=== PATIENT | female | born 1940 | race Caucasian/White ===

== ENCOUNTER 2021-12-12 09:47 | Emergency (ER) | payer MEDICARE ==
[2021-12-12 10:13] VITALS: RESP 18
[2021-12-12] MEDS ORDERED: ACETAMINOPHEN TAB 500 MG TAB PO STA (10:25)
[2021-12-12] MEDS ORDERED: IBUPROFEN 600 MG TAB PO STA (10:25)
[2021-12-12 11:54] VITALS: TEMP 97.1
--- NOTE | 2021-12-12 12:11 | XR ---
EXAMINATION TYPE: XR chest 2V DATE OF EXAM: 12/12/2021 COMPARISON: NONE HISTORY: Cough, Covid positive TECHNIQUE: Frontal and lateral views of the chest are obtained. FINDINGS: There is no focal air space opacity, pleural effusion, or pneumothorax seen. Linear band of increased attenuation present at the level of the lingula may represent atelectasis or scar. Aorta is dense. Right hemidiaphragm is elevated. The cardiac silhouette size is within normal limits. Th e osseous structures are intact. IMPRESSION: No acute cardiopulmonary process.
[2021-12-12] MEDS ORDERED: BEBTELOVIMAB (EUA) 175 MG/2 ML VIAL IV ONE (12:30)
--- NOTE | 2021-12-12 13:13 | ED ---
URI HPI - General Chief Complaint: Upper Respiratory Infection Stated Complaint: Covid+ Time Seen by Provider: 12/12/21 10:16 Source: patient Mode of arrival: wheelchair Limitations: no limitations - History of Present Illness Initial Comments: Patient is a 81-year-old female presenting with chief complaint of "I tested positive for Covid and want antibodies". Patient has had a cough and congestion since Friday, she took a home test today that was positive. She denies any chest pain, shortness of breath, fever, chills, nausea, vomiting, abdominal p ain, headache, vision or hearing changes, sore throat, dysphasia, ear pain, sinus pain. Patient is vaccinated against COVID-19. - Related Data Allergies Allergy/AdvReac Type Severity Reaction Status Date / Time No Known Allergies Allergy Verified 12/12/21 10:13 Review of Systems ROS Statement: Those systems with pertinent positive or pertinent negative responses have been documented in the HPI. ROS Other: All systems not noted in ROS Statement are negative. Past Medical History Past Medical History: Hypertension History of Any Multi-Drug Resistant Organisms: None Reported Past Surgical History: Hysterectomy Additional Past Surgical History / Comment(s): Brain surgery Past Psychological History: No Psychological Hx Reported Smoking Status: Never smoker Past Alcohol Use History: None Reported Past Drug Use History: None Reported General Exam Limitations: no limitations General appearance: alert, in no apparent distress Head exam: Present: atraumatic, normocephalic, normal inspection Eye exam: Present: normal appearance, EOMI. Absent: scleral icterus, periorbital swelling Neck exam: Present: normal inspection Respiratory exam: Present: normal lung sounds bilaterally. Absent: respiratory distress, wheezes, rales, rhonchi, stridor Cardiovascular Exam: Present: regular rate, normal rhythm, normal heart sounds. Absent: systolic murmur, diastolic murmur, rubs, gallop, clicks Neurological exam: Present: alert, oriented X3, CN II-XII intact Psychiatric exam: Present: normal affect, normal mood Skin exam: Present: warm, dry, intact, normal color. Absent: rash Course Vital Signs 12/12/21 12/12/21 12/12/21 10:08 11:54 13:14 Temperature 99.9 F H 97.1 F L Pulse Rate 77 67 65 Respiratory 18 18 18 Rate Blood Pressure 147/74 114/76 106/70 O2 Sat by Pulse 94 L 93 L 95 Oximetry Medical Decision Making - Medical Decision Making Patient is a 81-year-old female presenting requesting monoclonal antibodies for Covid. Patient has had cough and congestion for the last 3 days tested positive at home today. On examination heart and lungs are clear to auscultation. Chest x-ray was obtained which shows no acute process. PCR test is positive for Covid. Patient received monoclonal antibodies and was monitored for an hour for any adverse reaction. Patient tolerated the treatment well. Educated the patient on quarantine guidelines and supportive treatment. Follow-up with PCP. Report back to ER if any new or worsening symptoms. Discussed return parameters answered all questions. Patient conveyed verbal understanding and agreed to the plan. My attending is Dr. Nicholas - Lab Data Lab Results 12/12/21 Range/Units 10:25 Coronavirus (PCR) Detected A (Not Detectd) Disposition Clinical Impression: COVID Disposition: HOME SELF-CARE Condition: Good Instructions (If sedation given, give patient instructions): COVID-19 (Coronavirus Disease 2019) (ED), How to Recover from COVID-19 at Home (ED) Additional Instructions: Yout must quarantine for 5 days starting from the first day of symptoms, followed by 5 days of strict mask usage while in public if your symptoms have improved and you are fever free. If by day 5 your symptoms have not improved or you still have a fever, you must stay quarantined until you are symptom-free. Follow-up with PCP. Report back to ER if any new or worsening symptoms. Take Motrin and Tylenol as needed for fever and pain control. Is patient prescribed a controlled substance at d/c from ED?: No Referrals: Nonstaff,Physician [Primary Care Provider] - 1-2 days Time of Disposition: 01:20
[2021-12-12 13:15] VITALS: BP 106/70; PULSE 65
== END 2021-12-12 13:25 | disposition home or self-care (01) ==
LOC: EC 09:47
DX: U07.1 COVID-19 (principal); I10 Essential (primary) hypertension
CPT/HCPCS: 87635; 71046; 99283; Q0222